=== PATIENT | female | born 1950 | race Caucasian/White ===

== ENCOUNTER 2021-03-19 03:25 | Inpatient (IN) | payer OTHER, BC ==
[~2021-03-19] VITALS: Ht 160 cm; Wt 693.1 kg
[2021-03-19 03:25] VITALS: BP 147/89
--- NOTE | 2021-03-19 03:25 | NUR ---
0320--PT BIBA VIA GURNEY TO BED 05.
--- NOTE | 2021-03-19 03:25 | NUR ---
MELISSA FROM [facility] IN [place], PER EMS PT. HAD AN UNWITNESSED FALL. DENIES LOC. BASELINE OF AAOX4 PER FACILITY, NOW AAOX2 TO NAME AND . VSS; UPON ASSSESSMENT, PT. HAS LEFT EYE BRUISING WITH PURPLE COLOR. DENIES N/V/D; SKIN IS PINK/WARM/DRY; HR EVEN AND REGULAR; PATIENT POSITIONED FOR COMFORT; HOB ELEVATED; BEDRAILS UP X2; BED DOWN. ER MADE AWARE OF PT STATUS. Addendum: 03/19/21 at 0648 by MEDZSD MELISSA FROM [facility] IN [place], PER EMS PT. HAD AN UNWITNESSED FALL. DENIES LOC. BASELINE OF AAOX4 PER FACILITY, NOW AAOX2 TO NAME AND . VSS; UPON ASSSESSMENT, PT. HAS LEFT EYE BRUISING WITH PURPLE COLOR. DENIES N/V/D; SKIN IS PINK/WARM/DRY; HR EVEN AND REGULAR; PATIENT POSITIONED FOR COMFORT; HOB ELEVATED; BEDRAILS UP X2; BED DOWN. ER MADE AWARE OF PT STATUS. PMH: DEPRESSION, BRONCHITIS
--- NOTE | 2021-03-19 03:40 | NUR ---
LAB AT BEDSIDE
--- NOTE | 2021-03-19 03:58 | NUR ---
TAKEN TO CT VIA [facility]
--- NOTE | 2021-03-19 04:13 | NUR ---
PT BROUGHT BACK FROM CT VIA [facility].
[2021-03-19 04:14] LABS: BASOPHILS % (AUTO) 0.3 % (0.0-2.0); EOSINOPHILS # (AUTO) 0.1 K/uL (0-0.4); EOSINOPHILS % (AUTO) 1.3 % (0.0-4.0); HEMATOCRIT 36.6 % (36-48); HEMOGLOBIN 12.4 g/dL (12.0-16.0); LYMPHOCYTES # (AUTO) 2.3 K/uL (2.5-16.5); LYMPHOCYTES % (AUTO) 22.6 % (20.5-51.1); MEAN CORPUSCULAR HEMOGLOBIN 30 pg (27-31); MEAN CORPUSCULAR HGB CONC 34 g/dL (33-37); MEAN CORPUSCULAR VOLUME 87.6 fL (80-94); MONOCYTES # (AUTO) 0.8 K/uL (0.8-1.0); MONOCYTES % (AUTO) 8.3 % (1.7-9.3); NEUTROPHILS # (AUTO) 6.8 K/uL (1.8-7.7); NEUTROPHILS % (AUTO) 67.5 % (42.2-75.2); PLATELET COUNT (AUTO) 307 K/uL (140-450); RED BLOOD CELL COUNT(AUTO) 4.18 MIL/uL (4.20-5.40); RED CELL DISTRIBUTION WIDTH 13.6 % (11.6-13.7)
[2021-03-19] MEDS ORDERED: SERT25TA PO (05:01)
[2021-03-19] MEDS ORDERED: TTS3 TD (05:01)
[2021-03-19] MEDS ORDERED: GABA250S1 PO (05:01)
[2021-03-19] MEDS ORDERED: TEMA15CA24 PO (05:01)
[2021-03-19] MEDS ORDERED: LEVO13CA2 PO (05:01)
[2021-03-19] MEDS ORDERED: OMEP40EC24 PO (05:01)
[2021-03-19] MEDS ORDERED: AMLO2.5T3 PO (05:01)
[2021-03-19] MEDS ORDERED: MAGN400S60 PO (05:01)
[2021-03-19] MEDS ORDERED: LOSA100T1 PO (05:01)
[2021-03-19] MEDS ORDERED: MAG-27 PO (05:01)
[2021-03-19] MEDS ORDERED: AMOX-999 PO (05:01)
[2021-03-19] MEDS ORDERED: ATOR40TA PO (05:01)
[2021-03-19 05:11] LABS: ALBUMIN 3.2 g/dL (3.4-5.0); ANION GAP 10.9 (8-16); CARBON DIOXIDE 30.2 mmol/L (21-32); CREATININE 0.5 mg/dL (0.6-1.3); POTASSIUM 3.1 mmol/L (3.5-5.1); TOTAL BILIRUBIN 0.3 mg/dL (0.0-1.0)
[2021-03-19] MEDS ORDERED: ACETAMINOPHEN 325 MG TAB PO PRN (06:55)
[2021-03-19] MEDS ORDERED: MECLIZINE 25 MG TAB PO PRN (06:55)
[2021-03-19] MEDS: NACL 0.9% 1,000 ML IV SCH ×2 (06:55→23:02)
[2021-03-19] MEDS ORDERED: SODIUM PHOS / POTASSIUM PHOS 1 PKT PDR PO PRN (06:55)
[2021-03-19] MEDS ORDERED: DOCUSATE SODIUM 100 MG GELCAP PO PRN (06:55)
[2021-03-19] MEDS ORDERED: ONDANSETRON 4 MG/2 ML VIAL IM/IVP PRN (06:55)
--- NOTE | 2021-03-19 07:13 | NUR ---
REPORT GIVEN TO SERAFIN HALLMAN. TRANSFER OF CARE AT THIS TIME.
--- NOTE | 2021-03-19 07:14 | NUR ---
REPORT AND TRANSFER OF CARE RECEIVED FROM SERAFIN MICHELLE.
--- NOTE | 2021-03-19 07:15 | NUR ---
PATIENT OBSERVED IN BED RESTING, VSS, RR EVEN AND UNLABORED.
--- NOTE | 2021-03-19 08:00 | NUR ---
RECEIVED REPORT FROM ER NURSE SELENA HALLMAN ADMITTED FOR HEAD INJURY FROM [facility]. PT HAS HX OF HTN, PNA, PT IS FULL CODE, NKA. MENTAL STATUS X2. IV ACCESS ON RIGHT AC. RAPID COVID TEST IS NEGATIVE. PT HAS INCONTINENT DERMATITIS ON NELSON AREA AND SACRAL AREA. BRUISES ON RIGHT EYE.
[2021-03-19 08:30] VITALS: BP 137/85
--- NOTE | 2021-03-19 08:30 | NUR ---
PATIENT SOILED, PT CLEANED AND PROVIDED NEW DIAPER AND LINEN CHANGED. PATIENT HAS RASH TO GROIN AREA. OPEN RED RASH/DECUB APPROX 9-10CM LENGTH TO COCCYX OBSERVED AND NOTED, PICTURE TAKEN AND PLACED IN CHART.
--- NOTE | 2021-03-19 08:47 | NUR ---
Patient will be admitted to care of [facility]. Admited to TELE. Will go to room 122B. Belongings list completed. Report to VIPIN RN'S.
--- NOTE | 2021-03-19 08:52 | NUR ---
PT RECEIVED FROM ER, PT CAME VIA GURNEY, DIRECTED TO THE ROOM, CHANGE IN TO YELLOW GOWN, ALL SUPPLIES PROVIDED, MRSA SAMPLE TAKEN, CHECK VITALS, RESUMED IV FLUIDS, ADMINISTERED ALL PRESCRIBED MEDICATIONS PER MD ORDER. CALL LIGHT IN REACH ALL SAFETY MEASURES ARE IN PLACED. VITALS ARE STABLE. WILL CONTINUE TO MONITOR THE PT.
[2021-03-19] MEDS: PANTOPRAZOLE 40 MG INJ VIAL IVP SCH (09:00)
[2021-03-19] MEDS ORDERED: SERTRALINE 50 MG TAB PO SCH (09:00)
[2021-03-19] MEDS ORDERED: amLODIPine 5 MG TAB PO SCH (09:00)
--- NOTE | 2021-03-19 09:09 | NUR ---
PATIENT HAS BEEN SCREENED AND CATEGORIZED LOW NUTRITION RISK. PATIENT WILL BE SEEN WITHIN 7 DAYS OF ADMISSION. 03/25/[address]
[2021-03-19 09:23] LABS: MAGNESIUM 1.2 mg/dL (1.8-2.4); PHOSPHORUS 3.3 mg/dL (2.5-4.9); THYROID STIMULATING HORMONE 1.13 uIU/mL (0.34-3.74)
--- NOTE | 2021-03-19 10:25 | NUR ---
ADMINISTERED ALL THE PRESCRIBED MEDICATIONS PER MD ORDER. BP 135/75 OH 79. MORPHINE GIVEN PT REPORTED PAIN 02/25
[2021-03-19] MEDS: LOSARTAN 50 MG TAB PO SCH (11:09)
--- NOTE | 2021-03-19 12:42 | NUR ---
RECEIVED POTASSIUM LEVEL 3.1 MAGNESIUM 1.2 INFORMED DOCTOR AWAITING FOR FURTHER ORDERS.
--- NOTE | 2021-03-19 13:00 | NUR ---
WOUND CONSULT DONE, APPLIED OPTI FOAM APPLIED PER WOUND NURSE ORDER.
[2021-03-19] MEDS: POTASSIUM CHLORIDE 10 MEQ TABER PO PRN (13:27)
--- NOTE | 2021-03-19 13:27 | NUR ---
ADMINISTERED SCHEDULED MEDICATION K DUR 20 MEQ PATIENT POTASSIUM IS 3.1 AND MAG RIDER 4 GRAM MAGNESIUM LECEL IS 1.2 INFUSING WELL.
[2021-03-19] MEDS ORDERED: MAG SULF 2000 MG/WATER PREMIX 100 ML IV SCH (14:00)
--- NOTE | 2021-03-19 14:00 | NUR ---
REASON FOR EVALUATION: SACRALCOCCYX WOUND. WOUND ASSESSMENT COMPLETED ON THIS 70 Y/O FEMALE ADMITTED TO [facility] FOR CLOSED HEAD INJURY S/P FALL AT HOME. PATIENT IS FROM HOME. PAST MEDICAL HISTORY INCLUDES HTN, HLD, HYPOTHYROID, DEPRESSION, CHRONIC BACK PAIN, RENAL DISEASE, PNA, RESP FAILURE. ALL ABOVE INFORMATION WAS OBTAINED FROM THE ADMISSION H&P. LABS ARE WBC 10.0, H/H 12.4/36.6, GLUCOSE 126, ALBUMIN 3.2. PATIENT IS AAOX2, VERBAL, CONFUSED. SKIN IS WARM TO TOUCH, COLOR APPROPRIATE TO ETHNICITY. HAS GENERALIZED BILATERAL UPPER EXTREMITY AND LOWER EXTREMITIES WEAKNES. ORAL MUCOSAL MEMBRANES DRY. REQUIRES ASSISTANCE WITH TURNING. PLAN OF CARE AND PRESSURE PREVENTATIVE MEASURES DISCUSSED WITH PATIENT AND PRIMARY RN. PATIENT VERBALIZED UNDERSTANDING. REINFORCEMENT NEEDED. PATIENT ADMITTED WITH SACRALCOCCYX WOUND. COMORBIDITIES RELATED TO FURTHER SKIN BREAKDOWN SUCH IMPAIRED OR DECREASED MOBILITY AND DECREASED FUNCTIONAL ABILITY, LOW ALBUMIN LEVEL AND S/S OF DEHYDRATION. INTEGUMENTARY: - SACRALCOCCYX INCONTINENCE ASSOCIATED DERMATITIS. WOUND BED BLANCHABLE REDNESS, NO DRAINAGE, PERIWOUND DENUDED. - PERINEAL INCONTINENCE ASSOCIATED DERMATITIS. WOUND BED BLANCHABLE REDNESS, NO DRAINAGE, PERIWOUND DENUDED. RECOMMENDATIONS: - NO TAPE ON SKIN. - SACRALCOCCYX INCONTINENCE ASSOCIATED DERMATITIS - CLEANSE WITH NS, PAT DRY, APPLY Z-GAURD, AND COVER WITH ISLAND DRESSING DAILY AND PRN IF SOILED. - PERINEAL INCONTINENCE ASSOCIATED DERMATITIS - CLEANSE WITH NS, PAT DRY, APPLY Z-GAURD, AND LEAVE RIELY DAILY AND PRN IF SOILED. - OFFLOAD BILATERAL HEELS BY PLACING BILATERAL HEEL PROTECTORS. - TURN AND REPOSITION PATIENT Q2H TO LEFT AND RIGHT SIDE TO OFFLOAD SACRALCOCCYX. - ASSESS AND MONITOR SKIN CONDITION DURING POSITION CHANGE. PLEASE PAY ATTENTION TO SACRALCOCCYX.
[2021-03-19 16:00] VITALS: BP 146/83
[2021-03-19] MEDS ORDERED: GABAPENTIN 300 MG CAP PO SCH (16:00)
--- NOTE | 2021-03-19 16:18 | NUR ---
ADMINISTERED PRESCRIBED MEDICATIONS PER MD ORDER.
--- NOTE | 2021-03-19 16:19 | NUR ---
DC PLANNING: JASSON SPOKE WITH THE SW AT [facility] REGARDING THE PATIENT. SHE HAS BEEN AT [facility] FOR A MONTH S/P HOSPITALIZATION AT [facility] FOR PNA. ALSO SPOKE TO NEVIN CHARGE NURSE REGARDING FUNCTIONAL STATUS. HE STATES THAT SHE'S A&O X 2 WITH PERIODS OF CONFUSION, AND THAT SHE IS PRIMARILY WC/BEDBOUND. SHE IS MAX ASSIST OF 2 FOR TRANSFERS, [facility] FOR ADL'S BUT CAN FEED HERSELF WITH SET UP. THE PATIENT ROLLED OUT OF BED AT THE FACILITY, JASSON CONFIRMED THAT THEY DO NOT HAVE SENSOR MATS BY THE BEDS OF FALL RISK PATIENTS. JASSON ALSO SPOKE WITH THE PATIENTS PARTNER CARMEN ASHFORD ([phone]), HE STATES THAT THE PATIENT SUSTAINED A SERIOUS BACK INJURY 20 YEARS AGO REQUIRING SURGERY WITH PINS AND RODS. HAS ALSO HAD A RIGHT TKR AND RIGHT FOOT SURGERY BUT HAS BEEN AMBULATORY AT HOME USING A FWW AND WC. CARMEN ASSISTS HER NEEDED AT HOME AND IS CONCERNED THAT SHE HAS BECOME NON-AMBULATORY IN A FEW WEEKS. HE STATED THAT HE WOULD LIKE TO SPEAK WITH THE MD FOLLOWING HER AT [facility], JASSON SENT A MESSAGE TO DR DURBIN ASKING IF HE COULD SPEAK WITH CARMEN. CARMEN IS CONSIDERING HAVING HER COME HOME EVENTUALLY BUT IS IN AGREEMENT WITH HAVING HER RETURN TO [facility] FOR PHYSICAL AND OCCUPATIONAL THERAPY. AJSSON ENDORSED THAT SHE COULD POTENTIALLY BE DC'D TOMORROW BUT WILL CALL HIM TO CONFIRM. JASSON WILL FOLLOW FOR NEEDS. Addendum: 03/21/21 at 1520 by Rosamaria Velazquez CM DC PLANNING: CLINICAL INFORMATION FAXED TO PATIENTS ORIGINATING [facility], [facility] IN [place] IN CASE THE PATIENT DISCHARGES THIS WEEKEND. TRANSPORT WILL NEED TO BE ARRANGED WITH [facility], NUMBER [phone]. JASSON WILL FOLLOW FOR NEEDS. Addendum: 03/21/21 at 1521 by Rosamaria Velazquez DC PLANNING: ADDENDUM: [facility] IS AVAILABLE ON SUNDAYS.
--- NOTE | 2021-03-19 19:16 | NUR ---
ENDORSED THE NIGHT NURSE FOR CONTINUITY OF CARE PT IS STABLE.
[2021-03-19] MEDS ORDERED: MICONAZOLE TP SCH (21:00)
[2021-03-19] MEDS ORDERED: MICONAZOLE VAG 2% 45 GM TUBE VG SCH (21:00)
[2021-03-19] MEDS ORDERED: ATORVASTATIN 20 MG TAB PO SCH (21:00)
[2021-03-19] MEDS: ATORVASTATIN 20 MG TAB PO SCH (21:50)
[2021-03-19 22:18] VITALS: BP 136/75
[2021-03-19] MEDS: MORPHINE SULFATE 2 MG/ML SYR IVP PRN (22:25)
[2021-03-20] VITALS (8 sets, daily range): BP systolic 130–198; BP diastolic 70–129
--- NOTE | 2021-03-20 00:12 | NUR ---
POSSIBLE SOURCE OF PAIN IS PSYCHOSOCIAL/SPIRITUAL. PATIENT SAYS SHE FEELS LIKE EVERYONE SHE LOVES HAS GIVEN UP ON HER. CARITO MUNGUIA RN
[2021-03-20] MEDS: Z-GUARD PASTE TP SCH ×2 (00:17→13:49)
--- NOTE | 2021-03-20 04:37 | NUR ---
PATIENT RETURN FROM CT EXAM AT THIS TIME. CARITO MUNGUIA RN
[2021-03-20] MEDS: LEVOTHYROXINE 0.025 MG TAB PO SCH (05:31)
[2021-03-20 06:23] LABS: BASOPHILS % (AUTO) 0.3 % (0.0-2.0); EOSINOPHILS # (AUTO) 0.1 K/uL (0-0.4); EOSINOPHILS % (AUTO) 1.5 % (0.0-4.0); HEMATOCRIT 37.8 % (36-48); HEMOGLOBIN 12.6 g/dL (12.0-16.0); LYMPHOCYTES % (AUTO) 28.8 % (20.5-51.1); MEAN CORPUSCULAR HEMOGLOBIN 29 pg (27-31); MEAN CORPUSCULAR HGB CONC 33 g/dL (33-37); MEAN CORPUSCULAR VOLUME 88.1 fL (80-94); MONOCYTES # (AUTO) 0.6 K/uL (0.8-1.0); MONOCYTES % (AUTO) 8.9 % (1.7-9.3); NEUTROPHILS # (AUTO) 4.1 K/uL (1.8-7.7); NEUTROPHILS % (AUTO) 60.5 % (42.2-75.2); PLATELET COUNT (AUTO) 311 K/uL (140-450); RED BLOOD CELL COUNT(AUTO) 4.29 MIL/uL (4.20-5.40); RED CELL DISTRIBUTION WIDTH 13.6 % (11.6-13.7); WHITE BLOOD COUNT (AUTO) 6.8 K/uL (4.8-10.8)
[2021-03-20 06:29] LABS: ANION GAP 9.1 (8-16); CARBON DIOXIDE 29.6 mmol/L (21-32); CREATININE 0.5 mg/dL (0.6-1.3); POTASSIUM 3.7 mmol/L (3.5-5.1)
[2021-03-20] MEDS ORDERED: LEVOTHYROXINE 0.025 MG TAB PO SCH (06:30)
--- NOTE | 2021-03-20 07:26 | NUR ---
Handoff with SERAFIN Looney. Danny Vega RN
--- NOTE | 2021-03-20 08:00 | NUR ---
RECEIVED REPORT FROM BIOINFORMATICS SCIENTIST AT BEDSIDE FOR CONTINUITY OF CARE. PATIENT ALERT AWAKE ORIENTED X2. NOT IN ANY DISTRESS NOTED.WITH IVF ON GOING AND INFUSING WELL. ON HEART MONITOR SHOWS SR. WITH IVF ON GOING AND INFUSING WELL. CALL LIGHT WITHIN REACH. NEEDS ATTENDED. WILL CONTINUE TO MONITOR.
[2021-03-20] MEDS ORDERED: amLODIPine 5 MG TAB PO SCH (09:00)
[2021-03-20] MEDS ORDERED: hydrALAZINE 20 MG/ML VIAL IVP PRN (09:00)
[2021-03-20] MEDS: LOSARTAN 50 MG TAB PO SCH (09:25)
[2021-03-20] MEDS: hydroCHLOROthiazide 25 MG TAB PO SCH (09:26)
[2021-03-20] MEDS: CLONIDINE HYDROCHLORIDE 0.1 MG TAB PO SCH (09:27)
[2021-03-20] MEDS: SERTRALINE 50 MG TAB PO SCH (09:28)
[2021-03-20] MEDS: PANTOPRAZOLE 40 MG INJ VIAL IVP SCH (09:28)
--- NOTE | 2021-03-20 10:00 | NUR ---
HAD LARGE BM. APPLIED Z-GUARD ON AFFECTED AREAS. WILL CONTINUE TO MONITOR.
[2021-03-20] MEDS: NACL 0.9% 1,000 ML IV SCH (16:15)
--- NOTE | 2021-03-20 17:00 | NUR ---
PATIENT REMOVED HER IV AND TAKE OUT HER MONITOR. GOT ORDER FROM DR DAVIS TO DOWNGRADE TO [facility], PATIENT IS SR.
[2021-03-20 17:05] LABS: APPEARANCE,URINE CLEAR (CLEAR); BILIRUBIN,URINE NEGATIVE (NEGATIVE); BLOOD, URINE TRACE-I (NEGATIVE); COLOR,URINE YELLOW (YELLOW); LEUKOCYTE ESTERASE ,URINE 2+ (NEGATIVE); NITRITE, URINE NEGATIVE (NEGATIVE); UGLUCOSE NEGATIVE (NEGATIVE)
[2021-03-20 17:43] LABS: WBC,URINE 16-25 (MOD) /HPF (0-5)
--- NOTE | 2021-03-20 18:00 | NUR ---
PATIENT TRIED TO PUT IV, KEEP REFUSING AND SAID THAT WE PUT MEDICINE IN THERE. WILL TRY AGAIN AT LATER TIME.
--- NOTE | 2021-03-20 19:00 | NUR ---
IV INSERTED ON THE RIGHT FORE ARM G.22, CONTINUE IVF NS@ 60 ML/HR.
--- NOTE | 2021-03-20 19:15 | NUR ---
RECEIVED REPORT FROM ALEXANDRO BETANCOURT FOR CONTINUITY OF CARE. PT SITTING UP AAO2. NO APPARENT S/S OF ACUTE DISTRESS. BREATHING EVEN AND UNLABORED ON RA WITH O2 SAT OF 95%. NO C/O CP, SOB OR PAIN. R FA 22G INTACT/PATENT. POC AND WHITE COMMUNICATION BOARD UPDATED. BED IN LOW/LOCKED POSITION. CALL LIGHT WITHIN REACH. PT ENCOURAGED TO CALL FOR ANY NEEDS/ASSISTANCE. WILL CONTINUE TO MONITOR.
[2021-03-20] MEDS: ATORVASTATIN 20 MG TAB PO SCH (20:40)
[2021-03-20] MEDS: MICONAZOLE TP SCH (20:48)
[2021-03-21] MEDS: Z-GUARD PASTE TP SCH ×2 (01:20→13:00)
[2021-03-21 04:00] VITALS: BP 147/77
[2021-03-21 06:30] LABS: BASOPHILS % (AUTO) 0.2 % (0.0-2.0); EOSINOPHILS # (AUTO) 0.1 K/uL (0-0.4); EOSINOPHILS % (AUTO) 0.8 % (0.0-4.0); HEMATOCRIT 35.3 % (36-48); LYMPHOCYTES % (AUTO) 22.1 % (20.5-51.1); MEAN CORPUSCULAR HEMOGLOBIN 30 pg (27-31); MEAN CORPUSCULAR HGB CONC 34 g/dL (33-37); MEAN CORPUSCULAR VOLUME 87.5 fL (80-94); MONOCYTES # (AUTO) 0.9 K/uL (0.8-1.0); MONOCYTES % (AUTO) 9.7 % (1.7-9.3); NEUTROPHILS % (AUTO) 67.2 % (42.2-75.2); PLATELET COUNT (AUTO) 295 K/uL (140-450); RED BLOOD CELL COUNT(AUTO) 4.04 MIL/uL (4.20-5.40); RED CELL DISTRIBUTION WIDTH 13.7 % (11.6-13.7); WHITE BLOOD COUNT (AUTO) 8.9 K/uL (4.8-10.8)
[2021-03-21] MEDS: LEVOTHYROXINE 0.025 MG TAB PO SCH (06:36)
--- NOTE | 2021-03-21 06:56 | NUR ---
REPORT GIVEN TO KEL BETANCOURT FOR CONTINUITY OF CARE. PT SITTING UP AAOX2. NO APPARENT S/S OF ACUTE DISTRESS. BREATHING EVEN AND UNLABORED. BED IN LOW/LOCKED POSITION. CALL LIGHT WITHIN REACH. ALL NEEDS MET AT THIS TIME.
[2021-03-21 07:01] LABS: ANION GAP 8.6 (8-16); CARBON DIOXIDE 28.2 mmol/L (21-32); CREATININE 0.5 mg/dL (0.6-1.3)
--- NOTE | 2021-03-21 07:10 | NUR ---
RECEIVED REPORT FROM ALLIANCE CONSULTANT AT BEDSIDE FOR CONTINUITY OF CARE. PATIENT ALERT AWAKE ORIENTED X2. NOT IN ANY DISTRESS NOTED.WITH IVF ON GOING AND INFUSING WELL. WITH IVF ON GOING AND INFUSING WELL. CALL LIGHT WITHIN REACH. NEEDS ATTENDED. all safety measures on [facility] CONTINUE TO MONITOR
[2021-03-21 07:42] LABS: POTASSIUM 2.8 mmol/L (3.5-5.1)
[2021-03-21 08:00] VITALS: BP 129/78
--- NOTE | 2021-03-21 08:00 | NUR ---
ADMINISTERED ALL THE PRESCRIBED MEDICATIONS PER MD ORDER. TOLERATED MEDICATION WILL, NO COMPLAINS. POTASSIUM LEVEL LOW, GOT MEDICATED PRN ORDER. DR DAVIS INFORMED OF CRITICAL LAB RESULTS. PT STABLE, NO COMPLAINS ALL SAFETY MEASURES ON PLACE CALLS LIGHT WITHIN REACH.
[2021-03-21] MEDS: PANTOPRAZOLE 40 MG INJ VIAL IVP SCH (08:19)
[2021-03-21] MEDS: POTASSIUM CHLORIDE 10 MEQ TABER PO PRN (08:19)
[2021-03-21] MEDS: hydroCHLOROthiazide 25 MG TAB PO SCH (08:20)
[2021-03-21] MEDS: CLONIDINE HYDROCHLORIDE 0.1 MG TAB PO SCH (08:21)
[2021-03-21] MEDS: LOSARTAN 50 MG TAB PO SCH (08:22)
[2021-03-21] MEDS: amLODIPine 5 MG TAB PO SCH (08:22)
[2021-03-21] MEDS: SERTRALINE 50 MG TAB PO SCH (08:22)
[2021-03-21] MEDS: NACL 0.9% 1,000 ML IV SCH (09:00)
[2021-03-21] MEDS ORDERED: POTASSIUM CHLORIDE 40 MEQ, LIDOCAINE MPF 1% 25 MG in NACL 0.9% 250 ML IV SCH (10:30)
--- NOTE | 2021-03-21 10:59 | NUR ---
PT LAYING ON BED IV CAME OUT, GOT REPLACED WITH A NEW 22G IV, PT HAS NO COMPLAINS. POTASSIUM 2.8 DR ORDER A POTASSIUM DOSE POTASSIUM IV RUNNING THROUGH IV ORDERED. ALL SAFETY MEASURES ON PLACE CALLS LIGHT WITHIN REACH
--- NOTE | 2021-03-21 13:05 | NUR ---
PT SITTING IN BED NO COMPLAINS, NO SOD NOTED, BREATHING EVEN UNLABORED ALL SAFETY MEAURES ON PLACE, CALLS LIGHT WITHIN REACH
--- NOTE | 2021-03-21 15:15 | NUR ---
PT SITTING IN BED NO COMPLAINS, NO SOD NOTED, BREATHING EVEN UNLABORED ALL SAFETY MEASURES ON PLACE, CALLS LIGHT WITHIN REACH
[2021-03-21 16:00] VITALS: BP 112/65
[2021-03-21] MEDS: MUPIROCIN CA NASAL 2% 1GM TUBE NS SCH (16:00)
[2021-03-21] MEDS: CHLORHEXADINE GLUC 2% CLOTH TP SCH (16:00)
--- NOTE | 2021-03-21 17:20 | NUR ---
PT SITTING IN BED NO COMPLAINS, NO SOD NOTED, BREATHING EVEN UNLABORED. PT POSITIVE TO MRSA, GOT TREATMENT ORDER. ALL SAFETY MEASURES ON PLACE, CALLS LIGHT WITHIN REACH
--- NOTE | 2021-03-21 19:25 | NUR ---
REPORT GIVEN TO SYNTHETIC FILAMENT EXTRUDER NURSE
--- NOTE | 2021-03-21 19:30 | NUR ---
RECEIVED REPORT FROM DAYSNYFT NURSE.
[2021-03-21 20:00] VITALS: BP 115/76
[2021-03-21] MEDS: QUEtiapine FUMARATE 25 MG TAB PO SCH (20:12)
[2021-03-21] MEDS: ATORVASTATIN 20 MG TAB PO SCH (20:12)
[2021-03-21] MEDS: MICONAZOLE TP SCH (20:26)
--- NOTE | 2021-03-21 21:00 | NUR ---
SCHEDULED MEDS GIVEN. PT TOLERATED WELL.
--- NOTE | 2021-03-22 01:00 | NUR ---
APPLIED Z GUARD OINTMENT FOR PERINEAL DERMATITIS. CHANGE PERINEAL PAD. PT TOLERATED WELL.
[2021-03-22] MEDS: Z-GUARD PASTE TP SCH ×2 (01:24→16:18)
[2021-03-22] MEDS: NACL 0.9% 1,000 ML IV SCH ×2 (01:35→18:31)
[2021-03-22] MEDS: MAGNESIUM OXIDE 400 MG TAB PO PRN (03:02)
--- NOTE | 2021-03-22 03:03 | NUR ---
GAVE PRN MAG OX FOR MG OF 1.2. PT TOLERATED WELL.
[2021-03-22 04:00] VITALS: BP 140/82
[2021-03-22 05:56] LABS: BASOPHILS % (AUTO) 0.5 % (0.0-2.0); EOSINOPHILS # (AUTO) 0.1 K/uL (0-0.4); EOSINOPHILS % (AUTO) 0.7 % (0.0-4.0); HEMATOCRIT 38.4 % (36-48); LYMPHOCYTES # (AUTO) 2.4 K/uL (2.5-16.5); LYMPHOCYTES % (AUTO) 26.5 % (20.5-51.1); MEAN CORPUSCULAR HEMOGLOBIN 30 pg (27-31); MEAN CORPUSCULAR HGB CONC 34 g/dL (33-37); MEAN CORPUSCULAR VOLUME 88.3 fL (80-94); MONOCYTES # (AUTO) 0.9 K/uL (0.8-1.0); MONOCYTES % (AUTO) 10.1 % (1.7-9.3); NEUTROPHILS # (AUTO) 5.7 K/uL (1.8-7.7); NEUTROPHILS % (AUTO) 62.2 % (42.2-75.2); PLATELET COUNT (AUTO) 268 K/uL (140-450); RED BLOOD CELL COUNT(AUTO) 4.34 MIL/uL (4.20-5.40); WHITE BLOOD COUNT (AUTO) 9.1 K/uL (4.8-10.8)
[2021-03-22 06:07] LABS: CARBON DIOXIDE 25.6 mmol/L (21-32); CREATININE 0.5 mg/dL (0.6-1.3); POTASSIUM 3.6 mmol/L (3.5-5.1)
[2021-03-22] MEDS: LEVOTHYROXINE 0.025 MG TAB PO SCH (06:34)
--- NOTE | 2021-03-22 07:29 | NUR ---
ENDORSE PT TO DAYSHIFT NURSE FOR CONTINUITY OF CARE.
[2021-03-22] MEDS: hydroCHLOROthiazide 25 MG TAB PO SCH (10:27)
[2021-03-22] MEDS: LOSARTAN 50 MG TAB PO SCH (10:27)
[2021-03-22] MEDS: amLODIPine 5 MG TAB PO SCH (10:29)
[2021-03-22] MEDS: CLONIDINE HYDROCHLORIDE 0.1 MG TAB PO SCH ×2 (10:30→16:22)
[2021-03-22] MEDS: MUPIROCIN CA NASAL 2% 1GM TUBE NS SCH ×2 (10:31→22:34)
[2021-03-22] MEDS: SERTRALINE 50 MG TAB PO SCH (10:31)
[2021-03-22] MEDS: PANTOPRAZOLE 40 MG INJ VIAL IVP SCH (10:34)
[2021-03-22] MEDS: HYDROcodone/APAP 5/325 MG 1 TAB TAB PO PRN ×2 (10:58→16:17)
--- NOTE | 2021-03-22 13:06 | NUR ---
ATTEMPTED TO SEE PATIENT FOR PHYSICAL THERAPY TREATMENT HOWEVER PATIENT REFUSED STATING "I DO NOT FEEL LIKE DOING ANYTHING TODAY. I JUST WANT TO RELAX". EDUCATED IMPORTANCE OF MOBILITY HOWEVER PATIENT APPEARED AGITATED AND TOLD THERAPIST TO LEAVE HER ROOM. WILL FOLLOW UP IF APPROPRIATE; RN AWARE.
[2021-03-22 16:00] VITALS: BP 130/85
[2021-03-22] MEDS: CHLORHEXADINE GLUC 2% CLOTH TP SCH (16:19)
[2021-03-22] MEDS ORDERED: LORazepam 2 MG/ML VIAL IVP PRN (16:35)
--- NOTE | 2021-03-22 18:26 | NUR ---
Notified Dr Mac urine culture positive for ECOLI and awaiting further orders.
[2021-03-22 20:00] VITALS: BP 162/87
[2021-03-22] MEDS: ATORVASTATIN 20 MG TAB PO SCH (22:33)
[2021-03-22] MEDS: QUEtiapine FUMARATE 25 MG TAB PO SCH (22:33)
[2021-03-22] MEDS: MICONAZOLE TP SCH (22:37)
[2021-03-23] MEDS ORDERED: PIPERACILLIN/TAZOBACTAM 3.375 GM in DEXTROSE 5% 50 ML IV SCH ×2
[2021-03-23] MEDS: Z-GUARD PASTE TP SCH ×2 (00:47→13:19)
[2021-03-23] MEDS ORDERED: MEROPENEM 1,000 MG VIAL IV ONE (04:54)
[2021-03-23] MEDS: MEROPENEM 1,000 MG in NACL 0.9% 100 ML IV SCH ×3 (05:01→20:29)
[2021-03-23 05:35] VITALS: BP 184/101
[2021-03-23] MEDS: LEVOTHYROXINE 0.025 MG TAB PO SCH (05:38)
[2021-03-23 06:10] LABS: ANION GAP 15.2 (8-16); CARBON DIOXIDE 26.4 mmol/L (21-32); CREATININE 0.6 mg/dL (0.6-1.3); POTASSIUM 3.6 mmol/L (3.5-5.1)
[2021-03-23 06:27] LABS: BASOPHILS % (AUTO) 0.4 % (0.0-2.0); EOSINOPHILS # (AUTO) 0.1 K/uL (0-0.4); EOSINOPHILS % (AUTO) 1.5 % (0.0-4.0); HEMATOCRIT 39.3 % (36-48); HEMOGLOBIN 13.2 g/dL (12.0-16.0); LYMPHOCYTES # (AUTO) 2.2 K/uL (2.5-16.5); LYMPHOCYTES % (AUTO) 27.4 % (20.5-51.1); MEAN CORPUSCULAR HEMOGLOBIN 30 pg (27-31); MEAN CORPUSCULAR HGB CONC 34 g/dL (33-37); MEAN CORPUSCULAR VOLUME 89.1 fL (80-94); MONOCYTES # (AUTO) 0.7 K/uL (0.8-1.0); MONOCYTES % (AUTO) 8.6 % (1.7-9.3); NEUTROPHILS # (AUTO) 4.9 K/uL (1.8-7.7); NEUTROPHILS % (AUTO) 62.1 % (42.2-75.2); PLATELET COUNT (AUTO) 309 K/uL (140-450); RED BLOOD CELL COUNT(AUTO) 4.41 MIL/uL (4.20-5.40); RED CELL DISTRIBUTION WIDTH 13.9 % (11.6-13.7)
[2021-03-23] MEDS: CLONIDINE HYDROCHLORIDE 0.1 MG TAB PO SCH ×2 (09:00→10:30)
[2021-03-23] MEDS: LOSARTAN 50 MG TAB PO SCH (09:00)
[2021-03-23] MEDS: PANTOPRAZOLE 40 MG INJ VIAL IVP SCH (09:00)
[2021-03-23] MEDS: SERTRALINE 50 MG TAB PO SCH (09:00)
[2021-03-23] MEDS: amLODIPine 5 MG TAB PO SCH (09:00)
[2021-03-23] MEDS: hydroCHLOROthiazide 25 MG TAB PO SCH (09:00)
[2021-03-23] MEDS: MUPIROCIN CA NASAL 2% 1GM TUBE NS SCH (10:38)
[2021-03-23] MEDS: NACL 0.9% 1,000 ML IV SCH ×2 (11:03→23:53)
[2021-03-23] MEDS: HYDROcodone/APAP 5/325 MG 1 TAB TAB PO PRN (13:24)
[2021-03-23] MEDS: CHLORHEXADINE GLUC 2% CLOTH TP SCH (16:00)
[2021-03-23 18:57] VITALS: BP 130/85
[2021-03-23] MEDS: MORPHINE SULFATE 2 MG/ML SYR IVP PRN (19:49)
[2021-03-23 20:00] VITALS: BP 136/85
[2021-03-23] MEDS: QUEtiapine FUMARATE 25 MG TAB PO SCH (20:31)
[2021-03-23] MEDS: ATORVASTATIN 20 MG TAB PO SCH (20:31)
[2021-03-23] MEDS: MICONAZOLE TP SCH (21:00)
[2021-03-24] MEDS: Z-GUARD PASTE TP SCH ×2 (00:50→13:18)
[2021-03-24 04:00] VITALS: BP 146/90
[2021-03-24] MEDS: MEROPENEM 1,000 MG in NACL 0.9% 100 ML IV SCH ×3 (04:40→21:11)
--- NOTE | 2021-03-24 05:26 | NUR ---
Assumed care last night. She was very agitated. The at the bedside was also chimed in. No IV access. It was difficult administering the medication without IV. We were finally able to gain IV access. Medication were administered including Ativan to calm her down. We have been able to administer the IV fluids and the IV antibiotics. She has been given a bed bath. She remains calm this morning. Will endorse care to AM RN.
[2021-03-24 06:41] LABS: BASOPHILS % (AUTO) 0.5 % (0.0-2.0); EOSINOPHILS # (AUTO) 0.1 K/uL (0-0.4); EOSINOPHILS % (AUTO) 1.7 % (0.0-4.0); HEMATOCRIT 39.3 % (36-48); HEMOGLOBIN 12.9 g/dL (12.0-16.0); LYMPHOCYTES # (AUTO) 2.3 K/uL (2.5-16.5); LYMPHOCYTES % (AUTO) 27.4 % (20.5-51.1); MEAN CORPUSCULAR HEMOGLOBIN 29 pg (27-31); MEAN CORPUSCULAR HGB CONC 33 g/dL (33-37); MEAN CORPUSCULAR VOLUME 89.2 fL (80-94); MONOCYTES # (AUTO) 0.8 K/uL (0.8-1.0); MONOCYTES % (AUTO) 9.5 % (1.7-9.3); NEUTROPHILS # (AUTO) 5.2 K/uL (1.8-7.7); NEUTROPHILS % (AUTO) 60.9 % (42.2-75.2); PLATELET COUNT (AUTO) 298 K/uL (140-450); RED CELL DISTRIBUTION WIDTH 14.4 % (11.6-13.7); WHITE BLOOD COUNT (AUTO) 8.6 K/uL (4.8-10.8)
[2021-03-24 06:56] LABS: ANION GAP 9.9 (8-16); CARBON DIOXIDE 29.4 mmol/L (21-32); CREATININE 0.6 mg/dL (0.6-1.3); POTASSIUM 3.3 mmol/L (3.5-5.1)
[2021-03-24] MEDS: LEVOTHYROXINE 0.025 MG TAB PO SCH (07:09)
--- NOTE | 2021-03-24 07:25 | NUR ---
RECEIVED REPORT FROM COTTON FACTOR AT BEDSIDE FOR CONTINUITY OF CARE. PATIENT ALERT AWAKE ORIENTED X1. NOT IN ANY DISTRESS NOTED.WITH IVF ON GOING AND INFUSING WELL. CALL LIGHT WITHIN REACH. NEEDS ATTENDED. ALL SAFETY MEASURES ON PLACE CALLS LIGHT WITHIN REACH WILL CONTINUE TO MONITOR
[2021-03-24] MEDS: PANTOPRAZOLE 40 MG INJ VIAL IVP SCH (08:44)
[2021-03-24] MEDS: CLONIDINE HYDROCHLORIDE 0.1 MG TAB PO SCH (08:48)
[2021-03-24] MEDS: amLODIPine 5 MG TAB PO SCH (08:48)
[2021-03-24] MEDS: SERTRALINE 50 MG TAB PO SCH (08:48)
[2021-03-24] MEDS: LOSARTAN 50 MG TAB PO SCH (08:49)
[2021-03-24] MEDS: hydroCHLOROthiazide 25 MG TAB PO SCH (08:49)
--- NOTE | 2021-03-24 08:50 | NUR ---
PATIENT AWAKE. NO ACUTE DISTRESS NOTED. BREATHING EVEN AND UNLABORED. PATIENT ON ROOM AIR EATING BREAKFAST, PT RECIEVED MORNING MEDICATION ORDER TOLERATED WELL. ALL SAFETY MEASURES IN PLACE. CALL LIGHT WITHIN REACH. WILL CONTINUE TO MONITOR
--- NOTE | 2021-03-24 10:50 | NUR ---
PATIENT SLEEPING. NO ACUTE DISTRESS NOTED. BREATHING EVEN AND UNLABORED. PATIENT ON ROOM AIR . ALL SAFETY MEASURES IN PLACE. CALL LIGHT WITHIN REACH. WILL CONTINUE TO MONITOR
[2021-03-24] MEDS: POTASSIUM CHLORIDE 10 MEQ TABER PO PRN (12:05)
--- NOTE | 2021-03-24 12:45 | NUR ---
PATIENT SLEEPING ON BED. NO ACUTE DISTRESS NOTED. BREATHING EVEN AND UNLABORED. PATIENT ON ROOM AIR. ALL SAFETY MEASURES IN PLACE. CALL LIGHT WITHIN REACH
--- NOTE | 2021-03-24 14:50 | NUR ---
PATIENT LAYING ON BED. NO ACUTE DISTRESS NOTED. BREATHING EVEN AND UNLABORED. PATIENT ON ROOM AIR. ALL SAFETY MEASURES IN PLACE. CALL LIGHT WITHIN REACH
--- NOTE | 2021-03-24 15:00 | NUR ---
PSYCH EVALUATION FAXED TO DR. KLEIN'S EXCHANGE, FAX CONFIRMATION ATTACHED TO PT'S CHART.
[2021-03-24] MEDS: MUPIROCIN CA NASAL 2% 1GM TUBE NS SCH (15:42)
[2021-03-24] MEDS: CHLORHEXADINE GLUC 2% CLOTH TP SCH (15:42)
[2021-03-24 16:00] VITALS: BP 123/67
--- NOTE | 2021-03-24 16:45 | NUR ---
PATIENT LAYING ON BED. NO ACUTE DISTRESS NOTED. BREATHING EVEN AND UNLABORED. PATIENT ON ROOM AIR. RECEIVING IV FLUIDS. ALL SAFETY MEASURES IN PLACE. CALL LIGHT WITHIN REACH,
--- NOTE | 2021-03-24 17:35 | NUR ---
PATIENT LAYING ON BED. NO ACUTE DISTRESS NOTED. BREATHING EVEN AND UNLABORED. PATIENT ON ROOM AIR. TALKED TO HER THROUGH THE PHONE, EXPLAINED TO HIM WHAT MEDS SHE RECEIVED AND DISCUSSED PLAN OF CARE. ALL SAFETY MEASURES IN PLACE. CALL LIGHT WITHIN REACH
--- NOTE | 2021-03-24 18:54 | NUR ---
PATIENT LAYING ON BED. NO ACUTE DISTRESS NOTED. BREATHING EVEN AND UNLABORED. PATIENT ON ROOM AIR. ALL SAFETY MEASURES IN PLACE. CALL LIGHT WITHIN REACH
--- NOTE | 2021-03-24 19:15 | NUR ---
REPORT GIVEN TO WEIGHT TESTER RN
--- NOTE | 2021-03-24 19:29 | NUR ---
RECEIVED REPORT FROM DAYSNJFT NURSE FOR CONTINUITY OF CARE.
[2021-03-24 20:00] VITALS: BP 111/69
[2021-03-24] MEDS: NACL 0.9% 1,000 ML IV SCH (20:15)
[2021-03-24] MEDS: QUEtiapine FUMARATE 25 MG TAB PO SCH (20:20)
[2021-03-24] MEDS: ATORVASTATIN 20 MG TAB PO SCH (20:20)
--- NOTE | 2021-03-24 20:32 | NUR ---
ALL SCHEDULED MEDICATIONS GIVEN. PT TOLERATED WELL.
[2021-03-24] MEDS ORDERED: MEROPENEM 1,000 MG VIAL IV ONE (21:06)
[2021-03-24] MEDS: MICONAZOLE TP SCH (21:11)
[2021-03-25] MEDS: Z-GUARD PASTE TP SCH ×2 (01:33→13:28)
--- NOTE | 2021-03-25 02:00 | NUR ---
PT RESTING ON BED NO SIGNS OF DISTRESS. ON ROOM AIR, SAFETY MEASURES IMPLEMENTED.
[2021-03-25] MEDS: MEROPENEM 1,000 MG in NACL 0.9% 100 ML IV SCH ×2 (05:13→13:28)
[2021-03-25] MEDS: LEVOTHYROXINE 0.025 MG TAB PO SCH (06:12)
[2021-03-25 06:34] LABS: BASOPHILS % (AUTO) 0.3 % (0.0-2.0); EOSINOPHILS # (AUTO) 0.1 K/uL (0-0.4); EOSINOPHILS % (AUTO) 1.5 % (0.0-4.0); HEMATOCRIT 36.3 % (36-48); HEMOGLOBIN 12.4 g/dL (12.0-16.0); LYMPHOCYTES # (AUTO) 2.3 K/uL (2.5-16.5); LYMPHOCYTES % (AUTO) 25.2 % (20.5-51.1); MEAN CORPUSCULAR HEMOGLOBIN 30 pg (27-31); MEAN CORPUSCULAR HGB CONC 34 g/dL (33-37); MONOCYTES # (AUTO) 0.9 K/uL (0.8-1.0); MONOCYTES % (AUTO) 9.6 % (1.7-9.3); NEUTROPHILS # (AUTO) 5.8 K/uL (1.8-7.7); NEUTROPHILS % (AUTO) 63.4 % (42.2-75.2); PLATELET COUNT (AUTO) 297 K/uL (140-450); RED BLOOD CELL COUNT(AUTO) 4.12 MIL/uL (4.20-5.40); RED CELL DISTRIBUTION WIDTH 14.4 % (11.6-13.7); WHITE BLOOD COUNT (AUTO) 9.1 K/uL (4.8-10.8)
--- NOTE | 2021-03-25 07:25 | NUR ---
RECEIVED REPORT FROM QUALITY ASSURANCE TEST PROGRAM MANAGER AT BEDSIDE FOR CONTINUITY OF CARE. PATIENT ALERT AWAKE ORIENTED X1. NOT IN ANY DISTRESS NOTED.WITH IVF ON GOING AND INFUSING WELL. CALL LIGHT WITHIN REACH. NEEDS ATTENDED. ALL SAFETY MEASURES ON PLACE CALLS LIGHT WITHIN REACH WILL CONTINUE TO MONITOR
[2021-03-25 07:30] LABS: ALBUMIN 3.3 g/dL (3.4-5.0); ANION GAP 10.9 (8-16); CARBON DIOXIDE 26.5 mmol/L (21-32); MAGNESIUM 1.3 mg/dL (1.8-2.4); PHOSPHORUS 2.7 mg/dL (2.5-4.9); POTASSIUM 3.4 mmol/L (3.5-5.1); TOTAL BILIRUBIN 0.4 mg/dL (0.0-1.0)
--- NOTE | 2021-03-25 07:34 | NUR ---
ENDORSE PT TO DAYSHIFT NURSE FOR CONTINUITY OF CARE
[2021-03-25 07:58] LABS: CREATININE 0.6 mg/dL (0.6-1.3)
[2021-03-25 08:00] VITALS: BP 111/69
[2021-03-25] MEDS: CLONIDINE HYDROCHLORIDE 0.1 MG TAB PO SCH (09:19)
[2021-03-25] MEDS: LOSARTAN 50 MG TAB PO SCH (09:19)
[2021-03-25] MEDS: SERTRALINE 50 MG TAB PO SCH (09:19)
[2021-03-25] MEDS: amLODIPine 5 MG TAB PO SCH (09:20)
[2021-03-25] MEDS: hydroCHLOROthiazide 25 MG TAB PO SCH (09:20)
[2021-03-25] MEDS: PANTOPRAZOLE 40 MG INJ VIAL IVP SCH (09:20)
--- NOTE | 2021-03-25 09:20 | NUR ---
PATIENT SITTING ON BED EATING BREAKFAST, MORNING MEDICATION GOT ADMINISTRATED, PT TOLERATED WELL. NO ACUTE DISTRESS NOTED. PATIENT ON ROOM AIR. ALL SAFETY MEASURES IN PLACE. CALL LIGHT WITHIN REACH. WILL CONTINUE TO MONITOR.
[2021-03-25] MEDS: POTASSIUM CHLORIDE 10 MEQ TABER PO PRN (11:00)
[2021-03-25] MEDS: MAGNESIUM OXIDE 400 MG TAB PO PRN (11:00)
--- NOTE | 2021-03-25 11:05 | NUR ---
PATIENT SLEEPING. NO ACUTE DISTRESS NOTED. PATIENT ON ROOM AIR PT MG AND POTASSIUM LOW, GOT MEDICATED PRN MD ORDER. ALL SAFETY MEASURES IN PLACE. CALL LIGHT WITHIN REACH. WILL CONTINUE TO MONITOR.
--- NOTE | 2021-03-25 11:30 | NUR ---
PATIENT SLEEPING. NO ACUTE DISTRESS NOTED. PATIENT ON ROOM AIR. ALL SAFETY MEASURES IN PLACE. CALL LIGHT WITHIN REACH. WILL CONTINUE TO MONITOR.
--- NOTE | 2021-03-25 13:10 | NUR ---
PATIENT SLEEPING. NO ACUTE DISTRESS NOTED. PATIENT ON ROOM AIR. PT EAT LUNCH BY NANNY BABYSITTER HELP . NO COMPLAINS ALL SAFETY MEASURES IN PLACE. CALL LIGHT WITHIN REACH. WILL CONTINUE TO MONITOR
[2021-03-25] MEDS: NACL 0.9% 1,000 ML IV SCH (13:28)
[2021-03-25] MEDS ORDERED: IV Meropenem (13:53)
--- NOTE | 2021-03-25 14:55 | NUR ---
PATIENT SITTING ON BED. NO ACUTE DISTRESS NOTED. PATIENT ON ROOM AIR. ALL SAFETY MEASURES IN PLACE. CALL LIGHT WITHIN REACH. WILL CONTINUE TO MONITOR
--- NOTE | 2021-03-25 15:27 | NUR ---
03/25/21 RD INITIAL ASSESSMENT COMPLETED PLEASE REFER TO NUTRITION ASSESSMENT UNDER CARE ACTIVITY FOR ESTIMATED NUTRITIONAL NEEDS. 1. CONTINUE CARDIAC DIET TOLERATED 2. RD WILL PROVIDE NUTRITIONAL EDUCATION ON CARDIAC DIET FOR F/U. 3. RD TO FOLLOW-UP 5-7 DAYS, LOW RISK KAMAR VILLALOBOS RD
[2021-03-25] MEDS: CHLORHEXADINE GLUC 2% CLOTH TP SCH (15:53)
[2021-03-25] MEDS: MUPIROCIN CA NASAL 2% 1GM TUBE NS SCH (15:53)
--- NOTE | 2021-03-25 15:54 | NUR ---
PATIENT SITTING ON BED. NO ACUTE DISTRESS NOTED. PATIENT ON ROOM AIR. NO COMPLAINS ALL SAFETY MEASURES IN PLACE. CALL LIGHT WITHIN REACH. WILL CONTINUE TO MONITOR
[2021-03-25 16:00] VITALS: BP 112/68
--- NOTE | 2021-03-25 16:45 | NUR ---
ANITA FROM [facility] CALLED AND STATED THAT DR. KLEIN IS UNABLE TO SEE PT TODAY, DR. NIELSEN WILL COME TOMORROW INSTEAD. KEL BETANCOURT ASSIGNED MADE AWARE.
--- NOTE | 2021-03-25 17:00 | NUR ---
CONTACTED [facility] REGARDING PT'S D/C BACK TO [facility] ORDER, SPOKE WITH YESENIA-RN, STATED PT IS GOING TO ROOM 116-A CALLED [facility], SPOKE WITH JAMAL, STATED THEY ARE NOT ALLOWED TO COME TO OUR HOSPITAL UNTIL THEY ARE FULLY VACCINATED, SOMETIME NEXT WEEK THEY WILL COMPLETE THEIR COVID VACCINATION PER JAMAL. CALLED [facility], STATED TO SET UP [facility] AND BILL TO [facility]. SPOKE WITH MARY GRACE FROM [facility], INDEX CLERK TIME WILL BE AT 7 PM FOR GURNEY TRANSPORT. KEL-SERAFIN ASSIGNED MADE AWARE.
--- NOTE | 2021-03-25 17:45 | NUR ---
PATIENT SLEEPING. NO ACUTE DISTRESS NOTED. PATIENT ON ROOM AIR. ALL SAFETY MEASURES IN PLACE. CALL LIGHT WITHIN REACH
--- NOTE | 2021-03-25 18:00 | NUR ---
PT WILL BE TRANSFFERED BACK TO [facility], FULL REPORT GIVEN TO BRIDGETT TAYLOR FROM [facility]. PT HAVE AN IV IN HER RIGHT FOREARM. PT STILL CONFUSED IN AND OFF. NO ACUTE DISTRESS NOTED. PATIENT ON ROOM AIR. ALL SAFETY MEASURES IN PLACE. CALL LIGHT WITHIN REACH
--- NOTE | 2021-03-25 18:37 | NUR ---
PATIENT SLEEPING. NO ACUTE DISTRESS NOTED. PATIENT ON ROOM AIR. EATING DINNER. ALL SAFETY MEASURES IN PLACE. CALL LIGHT WITHIN REACH
--- NOTE | 2021-03-25 19:30 | NUR ---
RECEIVED BEDSIDE ENDORSEMENT FROM AM SHIFT RN. WILL BE DISCHARGED AND GOING BACK TO [facility] TODAY - WAITING ON [facility] TO COME PICK HER UP, IV SITE LAC 22G.
--- NOTE | 2021-03-25 19:57 | NUR ---
REPORT GIVEN TO ECONOMIC DEVELOPMENT SPECIALIST NURSE
[2021-03-25 20:00] VITALS: BP 96/64
--- NOTE | 2021-03-25 20:25 | NUR ---
PT WAS DISCHARGED AT 20:25 TO [facility] [place] [facility] , DISCHARGE PAPERS SIGN, PT LEFT WITH HER BELONGINGS, PT SON AT BEDSIDE AT THE TIME OF DISCHARGE AND AWARE OF HER TRANSPORTATION, LAST VITAL SIGNS TAKEN TEMP: 98.2, HR 91, BP 96/64, RR 18, OR SAT 99%, WRIST BAND IDENTIFICATION REMOVED.
== END 2021-03-25 20:25 | DRG 757 ==
LOC: MED 03:25 → MTU 06:25
PROVIDERS: ADMIT Hospitalist; ATTEND Hospitalist
DX: B37.3 Candidiasis of vulva and vagina (principal); G93.41 Metabolic encephalopathy; Z16.12 Extended spectrum beta lactamase (ESBL) resistance; M48.54XA Collapsed vertebra, not elsewhere classified, thoracic region, initial encounter for fracture; M48.56XA Collapsed vertebra, not elsewhere classified, lumbar region, initial encounter for fracture; F23 Brief psychotic disorder; Z96.659 Presence of unspecified artificial knee joint; F32.9 Major depressive disorder, single episode, unspecified; E03.9 Hypothyroidism, unspecified; E78.5 Hyperlipidemia, unspecified; I10 Essential (primary) hypertension; B96.20 Unspecified Escherichia coli [E. coli] as the cause of diseases classified elsewhere; F03.90 Unspecified dementia, unspecified severity, without behavioral disturbance, psychotic disturbance, mood disturbance, and anxiety; E83.42 Hypomagnesemia; K43.9 Ventral hernia without obstruction or gangrene; G89.29 Other chronic pain; R53.1 Weakness; K40.20 Bilateral inguinal hernia, without obstruction or gangrene, not specified as recurrent; R73.9 Hyperglycemia, unspecified; E27.8 Other specified disorders of adrenal gland; K42.9 Umbilical hernia without obstruction or gangrene; Z20.822 Contact with and (suspected) exposure to COVID-19; S01.111A Laceration without foreign body of right eyelid and periocular area, initial encounter; W06.XXXA Fall from bed, initial encounter; K57.30 Diverticulosis of large intestine without perforation or abscess without bleeding; E87.6 Hypokalemia; Z90.710 Acquired absence of both cervix and uterus; Z79.899 Other long term (current) drug therapy; Z87.01 Personal history of pneumonia (recurrent); Y93.89 Activity, other specified; Y92.89 Other specified places as the place of occurrence of the external cause; Y99.8 Other external cause status
CPT/HCPCS: 36415; 70450; 71045; 80048; 80053; 81001; 82140; 82948; 83036; 83735; 84100; 84443; 84484; 85025; 87081; 87086; 97110; 97112; 97163-GP; 97530; 99285; C9113; J0360; J0696; J1644; J2001; J2060; J2185; J2270; J2405; J2543; J3475; J3480; J7030; J7060; Q0092